=== PATIENT | male | born 1995 | race Caucasian/White ===

== ENCOUNTER → 2017-06-17 | Outpatient (CLI) | payer BC ==
--- NOTE | 2017-06-17 19:02 | REP ---
Clinical: Shortness of breath. Technique: PA and lateral. Comparison: 04/24/2008. Findings: Rounded opacity in the right upper lung zone may reflect acute pneumonia and less likely mass lesion. Follow-up to resolution and/or chest CT with contrast is recommended for further investigation. No pleural effusion. Mediastinum and cardiac silhouette normal. Skeletal structures intact. Impression: Likely rounded atelectasis/pneumonia in the right upper lobe. Follow-up to resolution recommended. Signed by Kirk Blackmon MD 06/17/2017 06:53 P
== END ==
LOC: M WUC 18:37
PROVIDERS: ATTEND Physician Assistant
DX: R06.02 Shortness of breath (principal)

== ENCOUNTER → 2017-07-08 | Outpatient (CLI) | payer BC | LOC: M WUC 15:43 | DX: J18.9 Pneumonia, unspecified organism (principal) | CPT/HCPCS: 71046 ==

== ENCOUNTER → 2017-08-17 | Outpatient (CLI) | payer BC | LOC: M WUC 15:43 | DX: J18.9 Pneumonia, unspecified organism (principal) ==

== ENCOUNTER → 2017-09-22 | Outpatient (CLI) | payer BC | LOC: M WUC 15:46 | DX: J18.9 Pneumonia, unspecified organism (principal) | CPT/HCPCS: 71046 ==

== ENCOUNTER → 2018-06-07 | Outpatient (CLI) | payer BC ==
[2018-06-07 19:23] LABS: BASO % 0.5 % (0.0-1.0); EOS # 0.1 10^3/uL (0.0-0.50); EOS % 1.3 % (0.0-3.0); HEMATOCRIT 46.7 % (42.0-52.0); HEMOGLOBIN 16.1 g/dl (13.5-17.5); IMMATURE GRANULOCYTE % 0.1 % (0-3.0); LYMPH # 2.2 10^3/uL (1.5-6.5); LYMPH % 29.4 % (24.0-44.0); MEAN CORPUSCULAR HEMOGLOBIN 30.7 pg (27.0-33.0); MEAN CORPUSCULAR HGB CONC 34.5 g/dl (32.0-36.5); MONO # 0.5 10^3/uL (0.0-0.8); MONO % 6.8 % (0.0-5.0); NEUTROPHILS # 4.7 10^3/uL (1.8-7.7); NEUTROPHILS % 61.9 % (36.0-66.0); PLATELET COUNT, AUTOMATED 265 10^3/uL (150-450); RED BLOOD COUNT 5.25 10^6/uL (4.30-6.10); RED CELL DISTRIBUTION WIDTH 12.9 % (11.5-14.5); WHITE BLOOD COUNT 7.5 10^3/uL (4.0-10.0)
[2018-06-07 19:39] LABS: ALBUMIN 4.5 GM/DL (3.2-5.2); ALBUMIN/GLOBULIN RATIO 1.45 (1.00-1.93); ALKALINE PHOSPHATASE 73 U/L (45-117); ALT/SGPT 37 U/L (12-78); ANION GAP 8 MEQ/L (8-16); AST/SGOT 21 U/L (7-37); BILIRUBIN,TOTAL 0.7 MG/DL (0.2-1.0); BLOOD UREA NITROGEN 14 MG/DL (7-18); CALCIUM LEVEL 9.2 MG/DL (8.5-10.1); CARBON DIOXIDE LEVEL 28 MEQ/L (21-32); CHLORIDE LEVEL 103 MEQ/L (98-107); CHOLESTEROL LEVEL 144 MG/DL (<200); CREATININE FOR GFR 0.86 MG/DL (0.70-1.30); FREE T4 1.09 NG/DL (0.76-1.46); GLOMERULAR FILTRATION RATE > 60.0 (>60); GLUCOSE, FASTING 86 MG/DL (70-100); HDL CHOLESTEROL 45 MG/DL (>40); LDL CHOLESTEROL 88 MG/DL (<100); NON-HDL-C 99 MG/DL; POTASSIUM SERUM 4.4 MEQ/L (3.5-5.1); SODIUM LEVEL 139 MEQ/L (136-145); TOTAL PROTEIN 7.6 GM/DL (6.4-8.2); TRIGLYCERIDES LEVEL 56 MG/DL (<150)
[2018-06-07 19:59] LABS: ESTIMATED AVERAGE GLUCOSE 105 MG/DL (60-110); HEMOGLOBIN A1c 5.3 %
== END ==
LOC: M LAB 18:12
DX: J30.1 Allergic rhinitis due to pollen (principal); I10 Essential (primary) hypertension; E66.09 Other obesity due to excess calories; Z68.35 Body mass index [BMI] 35.0-35.9, adult; Z13.220 Encounter for screening for lipoid disorders
CPT/HCPCS: 84443

== ENCOUNTER → 2018-06-09 | Outpatient (CLI) | payer BC | LOC: M SLEEP HO 15:09 | DX: G47.33 Obstructive sleep apnea (adult) (pediatric) (principal) | CPT/HCPCS: G0399 ==

== ENCOUNTER → 2019-02-12 | Outpatient (CLI) | payer BC ==
[2019-02-12 10:59] LABS: BASO % 0.2 % (0.0-1.0); EOS # 0.2 10^3/uL (0.0-0.50); EOS % 1.8 % (0.0-3.0); HEMATOCRIT 48.6 % (42.0-52.0); HEMOGLOBIN 16.9 g/dl (13.5-17.5); LYMPH # 1.3 10^3/uL (1.5-6.5); LYMPH % 13.4 % (24.0-44.0); MEAN CORPUSCULAR HEMOGLOBIN 31.4 pg (27.0-33.0); MEAN CORPUSCULAR HGB CONC 34.8 g/dl (32.0-36.5); MEAN CORPUSCULAR VOLUME 90.2 fl (80.0-96.0); MONO # 0.4 10^3/uL (0.0-0.8); NEUTROPHILS # 7.7 10^3/uL (1.8-7.7); NEUTROPHILS % 80.1 % (36.0-66.0); PLATELET COUNT, AUTOMATED 269 10^3/uL (150-450); RED BLOOD COUNT 5.39 10^6/uL (4.30-6.10); WHITE BLOOD COUNT 9.6 10^3/uL (4.0-10.0)
[2019-02-12 11:31] LABS: ALBUMIN 4.3 GM/DL (3.2-5.2); ALT/SGPT 32 U/L (12-78); BILIRUBIN,TOTAL 0.8 MG/DL (0.2-1.0); BLOOD UREA NITROGEN 10 MG/DL (7-18); CALCIUM LEVEL 9.9 MG/DL (8.5-10.1); CARBON DIOXIDE LEVEL 26 MEQ/L (21-32); CHLORIDE LEVEL 105 MEQ/L (98-107); GLOMERULAR FILTRATION RATE > 60.0 (>60); GLUCOSE, FASTING 101 MG/DL (70-100); LIPASE 134 U/L (73-393); POTASSIUM SERUM 3.7 MEQ/L (3.5-5.1); SODIUM LEVEL 141 MEQ/L (136-145); TOTAL PROTEIN 7.6 GM/DL (6.4-8.2)
== END ==
LOC: M LAB 09:55
PROVIDERS: ATTEND Physician Assistant
DX: R10.30 Lower abdominal pain, unspecified (principal)

== ENCOUNTER → 2019-02-12 | Outpatient (REF) | payer BC | LOC: M LAB REF 12:48 | PROVIDERS: ATTEND Physician Assistant | DX: R19.7 Diarrhea, unspecified (principal) ==

== ENCOUNTER → 2019-03-08 | Outpatient (REF) | payer BC ==
[~2019-03-08] MED LIST: ALBU83IN NEB; AMLO5TAB6; DOXY-350 PO; HYDR-3363 PO; LISI-1046; PROAAER10 INH; TESS100C PO
== END ==
LOC: M LAB REF 11:17
PROVIDERS: ATTEND Physician Assistant
DX: J02.9 Acute pharyngitis, unspecified (principal)

== ENCOUNTER 2019-03-10 09:55 | Emergency (ER) | payer BC ==
[~2019-03-10] VITALS: Ht 188 cm; Wt 116.4 kg
[2019-03-10 09:55] VITALS: BP 154/79
[2019-03-10] MEDS ORDERED: LISI-1046 (09:59)
[2019-03-10] MEDS ORDERED: HYDR-3363 PO (09:59)
[2019-03-10] MEDS ORDERED: AMLO5TAB6 (09:59)
[2019-03-10] MEDS ORDERED: ALBUTEROL SULFATE 2.5 MG/0.5 ML INH NEB SOLN NEB ONE (10:30)
[2019-03-10 10:37] LABS: BASO % 0.3 % (0.0-1.0); EOS # 0.1 10^3/uL (0.0-0.5); EOS % 0.6 % (0.0-3.0); HEMATOCRIT 45.4 % (42.0-52.0); LYMPH # 1.2 10^3/uL (1.5-5.0); LYMPH % 11.2 % (24.0-44.0); MEAN CORPUSCULAR HEMOGLOBIN 30.9 pg (27.0-33.0); MEAN CORPUSCULAR HGB CONC 35.2 g/dl (32.0-36.5); MEAN CORPUSCULAR VOLUME 87.6 fl (80.0-96.0); MONO # 0.8 10^3/uL (0.0-0.8); MONO % 7.1 % (0.0-5.0); NEUTROPHILS # 8.7 10^3/uL (1.5-8.5); NEUTROPHILS % 80.5 % (36.0-66.0); PLATELET COUNT, AUTOMATED 208 10^3/uL (150-450); RED BLOOD COUNT 5.18 10^6/uL (4.30-6.10); WHITE BLOOD COUNT 10.8 10^3/uL (4.0-10.0)
[2019-03-10 10:50] LABS: BLOOD UREA NITROGEN 11 MG/DL (7-18); CALCIUM LEVEL 8.7 MG/DL (8.5-10.1); CARBON DIOXIDE LEVEL 24 MEQ/L (21-32); CHLORIDE LEVEL 103 MEQ/L (98-107); CREATININE FOR GFR 0.99 MG/DL (0.70-1.30); GLOMERULAR FILTRATION RATE > 60.0 (>60); GLUCOSE, FASTING 109 MG/DL (70-100); POTASSIUM SERUM 3.7 MEQ/L (3.5-5.1); SODIUM LEVEL 136 MEQ/L (136-145)
[2019-03-10 10:55] LABS: INFLUENZA A AMPLIFICATION NEGATIVE (NEGATIVE); INFLUENZA B AMPLIFICATION NEGATIVE (NEGATIVE)
--- NOTE | 2019-03-10 11:00 | REP ---
REASON: Cough and pyrexia. COMPARISON: Multiple. There is a new patchy opacity in the right upper lobe. The pleural angles are sharp and the heart is not enlarged. The osseous structures are normal. IMPRESSION: Right upper lobe pneumonia. Electronically Signed by Stiven Cabrera DO 03/10/2019 11:25 A
[2019-03-10] MEDS ORDERED: DOXY-350 PO (11:03)
[2019-03-10] MEDS ORDERED: ALBU83IN NEB (11:05)
[2019-03-10] MEDS ORDERED: PROAAER10 INH (11:05)
[2019-03-10] MEDS ORDERED: TESS100C PO (11:05)
== END 2019-03-10 11:22 | disposition home or self-care (01) ==
LOC: M ED 09:55
DX: J18.1 Lobar pneumonia, unspecified organism (principal); F41.9 Anxiety disorder, unspecified; I10 Essential (primary) hypertension; F17.290 Nicotine dependence, other tobacco product, uncomplicated; Z79.899 Other long term (current) drug therapy

== ENCOUNTER → 2019-11-01 | Outpatient (REF) | payer BC ==
[~2019-11-01] MED LIST changes: -LISI-1046; +LISI2.5T2
[2019-11-01 17:46] LABS: BASO # 0.1 10^3/uL (0.0-0.2); BASO % 0.7 % (0.0-1.0); EOS # 0.2 10^3/uL (0.0-0.5); EOS % 1.7 % (0.0-3.0); HEMATOCRIT 45.5 % (42.0-52.0); LYMPH # 2.3 10^3/uL (1.5-5.0); MEAN CORPUSCULAR HEMOGLOBIN 30.8 pg (27.0-33.0); MEAN CORPUSCULAR HGB CONC 35.2 g/dl (32.0-36.5); MEAN CORPUSCULAR VOLUME 87.7 fl (80.0-96.0); MONO # 0.6 10^3/uL (0.0-0.8); MONO % 5.9 % (0.0-5.0); NEUTROPHILS % 68.4 % (36.0-66.0); PLATELET COUNT, AUTOMATED 322 10^3/uL (150-450); RED BLOOD COUNT 5.19 10^6/uL (4.30-6.10); WHITE BLOOD COUNT 10.2 10^3/uL (4.0-10.0)
[2019-11-01 18:05] LABS: ALBUMIN 4.1 GM/DL (3.2-5.2); ALT/SGPT 44 U/L (12-78); BILIRUBIN,TOTAL 0.5 MG/DL (0.2-1.0); BLOOD UREA NITROGEN 25 MG/DL (7-18); CALCIUM LEVEL 9.4 MG/DL (8.5-10.1); CARBON DIOXIDE LEVEL 26 MEQ/L (21-32); CHLORIDE LEVEL 105 MEQ/L (98-107); CHOLESTEROL LEVEL 187 MG/DL (<200); CHOLESTEROL RISK RATIO 4.675 (<5); CREATININE FOR GFR 0.97 MG/DL (0.70-1.30); GLOMERULAR FILTRATION RATE > 60.0 (>60); GLUCOSE, FASTING 63 MG/DL (70-100); HDL CHOLESTEROL 40 MG/DL (>40); LDL CHOLESTEROL 114 MG/DL (<100); NON-HDL-C 147 MG/DL; POTASSIUM SERUM 4.5 MEQ/L (3.5-5.1); SODIUM LEVEL 137 MEQ/L (136-145); TOTAL PROTEIN 7.6 GM/DL (6.4-8.2); TRIGLYCERIDES LEVEL 164 MG/DL (<150)
[2019-11-01 19:34] LABS: HEMOGLOBIN A1c 5.6 %
== END ==
LOC: M SFHCPLAZ 15:30
PROVIDERS: ATTEND Physician Assistant Medical
DX: I10 Essential (primary) hypertension (principal); Z13.220 Encounter for screening for lipoid disorders; E66.09 Other obesity due to excess calories

== ENCOUNTER 2020-02-14 21:24 | Emergency (ER) | payer BC ==
[~2020-02-14] VITALS: Ht 190.5 cm; Wt 150.8 kg
[~2020-02-14 21:24] MED LIST changes: +AMLO1TAB24; -AMLO5TAB6
[2020-02-14 21:25] VITALS: BP 135/60
[2020-02-14] MEDS ORDERED: SERT25TA21 (21:47)
--- NOTE | 2020-02-14 22:16 | REPVR ---
PROCEDURE INFORMATION: Exam: XR Chest, 2 Views Exam date and time: 02/14/2020 10:07 PM Age: 25 years old Clinical indication: Shortness of breath; Additional info: SOB TECHNIQUE: Imaging protocol: XR of the chest Views: 2 views. COMPARISON: CR Chest, 2 view PA, Lat 03/10/2019 10:18 AM FINDINGS: Lungs: Unremarkable. No consolidation. Pleural space: Unremarkable. No pleural effusion. No pneumothorax. Heart/Mediastinum: Unremarkable. No cardiomegaly. Bones/joints: Unremarkable. IMPRESSION: No acute findings. Electronically signed by: Girish Appiah On 02/14/2020 22:17:01 PM
[2020-02-15] MEDS ORDERED: PRED20TA PO (02:38)
[2020-02-15] MEDS ORDERED: predniSONE 20 MG TAB PO ONE (02:45)
== END 2020-02-15 03:26 | disposition home or self-care (01) ==
LOC: M ED 21:24
DX: R06.02 Shortness of breath (principal); R05 Cough; I10 Essential (primary) hypertension; Z79.899 Other long term (current) drug therapy; F17.210 Nicotine dependence, cigarettes, uncomplicated

== ENCOUNTER 2020-03-24 09:04 | Emergency (ER) | payer BC ==
[~2020-03-24] VITALS: Ht 190.5 cm; Wt 157.3 kg
[~2020-03-24 09:04] MED LIST changes: +PRED20TA PO; +SERT25TA21
[2020-03-24] MEDS ORDERED: DOXY100T27 (09:12)
[2020-03-24] MEDS ORDERED: PRED10TA2 (09:12)
[2020-03-24] MEDS ORDERED: ALBU8.5H (09:12)
[2020-03-24] MEDS ORDERED: MONT10TA4 (09:12)
[2020-03-24] MEDS ORDERED: BENZONATATE 100 MG CAP PO ONE (10:45)
[2020-03-24] MEDS ORDERED: methylPREDNISolone 125MG 2ML VIAL IV ONE ×2 (10:45→11:00)
[2020-03-24 11:38] LABS: BASO # 0.1 10^3/uL (0.0-0.2); BASO % 0.3 % (0.0-1.0); HEMATOCRIT 44.8 % (42.0-52.0); HEMOGLOBIN 14.5 g/dl (13.5-17.5); LYMPH # 0.8 10^3/uL (1.5-5.0); LYMPH % 3.4 % (24.0-44.0); MEAN CORPUSCULAR HEMOGLOBIN 28.9 pg (27.0-33.0); MEAN CORPUSCULAR HGB CONC 32.4 g/dl (32.0-36.5); MEAN CORPUSCULAR VOLUME 89.4 fl (80.0-96.0); MONO # 0.9 10^3/uL (0.0-0.8); MONO % 3.7 % (0.0-5.0); NEUTROPHILS # 22.7 10^3/uL (1.5-8.5); PLATELET COUNT, AUTOMATED 356 10^3/uL (150-450); RED BLOOD COUNT 5.01 10^6/uL (4.30-6.10); WHITE BLOOD COUNT 24.7 10^3/uL (4.0-10.0)
[2020-03-24] MEDS ORDERED: ISOVUE-370 76% 100ML VIAL As Ordered ONE (11:49)
[2020-03-24 12:20] LABS: ALBUMIN 3.8 GM/DL (3.2-5.2); BILIRUBIN,DIRECT 0.2 MG/DL (0.0-0.2); BILIRUBIN,TOTAL 0.8 MG/DL (0.2-1.0); THYROID STIMULATING HORMONE 1.45 uIU/ML (0.358-3.740); THYROXINE (T4) 9.4 UG/DL (4.5-12.0); TOTAL PROTEIN 7.3 GM/DL (6.4-8.2)
--- NOTE | 2020-03-24 13:50 | REPVR ---
PROCEDURE INFORMATION: Exam: XR Chest, 2 Views Exam date and time: 03/24/2020 1:26 PM Age: 25 years old Clinical indication: Cough; Additional info: Productive cough TECHNIQUE: Imaging protocol: XR of the chest Views: 2 views. COMPARISON: CR Chest, 2 view PA, Lat 02/14/2020 10:02 PM FINDINGS: Lungs: Mild interstitial prominence without acute infiltrate. Pleural space: No pleural effusion. Heart/Mediastinum: No cardiomegaly. Bones/joints: Unremarkable. IMPRESSION: Mild interstitial prominence without acute infiltrate. Electronically signed by: Cody Omer On 03/24/2020 13:50:36 PM
--- NOTE | 2020-03-24 13:56 | REPVR ---
PROCEDURE INFORMATION: Exam: CT Angiography Chest With Contrast Exam date and time: 03/24/2020 1:37 PM Age: 25 years old Clinical indication: Other: Hemoptysis, R/O pe TECHNIQUE: Imaging protocol: Computed tomographic angiography of the chest with intravenous contrast. 3D rendering (Not supervised by radiologist): MIP and/or 3D reconstructed images were created by the technologist. Radiation optimization: All CT scans at this facility use at least one of these dose optimization techniques: automated exposure control; mA and/or kV adjustment per patient size (includes targeted exams where dose is matched to clinical indication); or iterative reconstruction. Contrast material: ISOVUE 370; Contrast volume: 100 ml; Contrast route: INTRAVENOUS (IV); COMPARISON: CR Chest, 2 view PA, Lat 03/24/2020 1:19 PM FINDINGS: Pulmonary arteries: No pulmonary embolus in the opacified pulmonary arteries. Aorta: Normal caliber of the thoracic aorta. Lungs: Bilateral interstitial/airspace disease, in a pattern of pneumonitis. Poorly defined bilateral nodular densities, including 6 mm nodule in the posterior segment of the right upper lobe (series 401: Image 81) and 10 mm poorly defined nodule in the left upper lobe (series 401: Image 65). For patients at low risk (minimal or absent history of smoking and of other known risk factors), recommend CT Chest at 3-6 months, then consider CT Chest at 18-24 months. For patients at high risk (history of smoking or of other known risk factors), recommend CT Chest at 3-6 months, then CT Chest at 18-24 months. (Reference: Frances). Pleural space: No pleural effusion. Heart: Left ventricular hypertrophy. Mediastinal space: Small hiatal hernia. Lymph nodes: Subcentimeter lymph nodes. Upper abdomen: Enlarged spleen measuring 12.9 cm in length. Colonic diverticula. Bones/joints: Schmorl's nodes and vertebral endplate irregularity. IMPRESSION: 1. No pulmonary embolus in the opacified pulmonary arteries. 2. Bilateral interstitial/airspace disease, in a pattern of pneumonitis. 3. Poorly defined bilateral nodular densities, including 6 mm nodule in the posterior segment of the right upper lobe (series 401: Image 81) and 10 mm poorly defined nodule in the left upper lobe (series 401: Image 65). 4. Additional findings as described above. Electronically signed by: Cody Omer On 03/24/2020 13:56:02 PM
[2020-03-24] MEDS ORDERED: NS 1,000 ML IV ONE (14:30)
[2020-03-24] MEDS ORDERED: TESS100C PO (15:36)
[2020-03-24 16:41] VITALS: BP 146/78
--- NOTE | 2020-03-25 09:08 | ECGEPIP ---
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
--- NOTE | 2020-03-26 18:42 | ED PDOC ---
Post-Departure Follow-Up dr bal and chloe mccain faxed formal report of cta chest for fu Kamila Huang MD Mar 26, 2020 18:42
== END 2020-03-24 16:46 | disposition home or self-care (01) ==
LOC: M ED 09:04
DX: J06.9 Acute upper respiratory infection, unspecified (principal); B34.9 Viral infection, unspecified; R04.2 Hemoptysis; R91.8 Other nonspecific abnormal finding of lung field; R00.0 Tachycardia, unspecified; I10 Essential (primary) hypertension; Z87.891 Personal history of nicotine dependence; Z79.51 Long term (current) use of inhaled steroids; Z79.899 Other long term (current) drug therapy
CPT/HCPCS: 71046; 71275; 80047; 80076; 83880; 84436; 84443; 84484; 85025; 87040; 87070; 87205; 87486; 87581; 87633; 87798; 93005; 96361; 96374; 96376; 99284; J2930; Q9967

== ENCOUNTER → 2020-03-26 | Outpatient (CLI) | payer BC ==
[~2020-03-26] MED LIST changes: +ALBU8.5H; +DOXY100T27; +MONT10TA4; +PRED10TA2
[2020-03-26 13:53] LABS: BASO % 0.2 % (0.0-1.0); EOS % 0.1 % (0.0-3.0); HEMATOCRIT 46.6 % (42.0-52.0); HEMOGLOBIN 15.1 g/dl (13.5-17.5); LYMPH % 5.5 % (24.0-44.0); MEAN CORPUSCULAR HEMOGLOBIN 29.3 pg (27.0-33.0); MEAN CORPUSCULAR HGB CONC 32.4 g/dl (32.0-36.5); MEAN CORPUSCULAR VOLUME 90.3 fl (80.0-96.0); MONO % 5.3 % (0.0-5.0); NEUTROPHILS # 16.4 10^3/uL (1.5-8.5); NEUTROPHILS % 88.4 % (36.0-66.0); PLATELET COUNT, AUTOMATED 373 10^3/uL (150-450); RED BLOOD COUNT 5.16 10^6/uL (4.30-6.10); WHITE BLOOD COUNT 18.5 10^3/uL (4.0-10.0)
--- NOTE | 2020-04-02 07:27 | REPPI ---
CHEST X-RAY: 2-VIEWS HISTORY: Pneumonia. COMPARISON: Chest x-ray 03/24/2020. CT study 03/24/2020. FINDINGS: Interstitial markings remain diffusely increased. There is mild diffuse peribronchial thickening. No focal consolidation is appreciated. Pleural angles are sharp. Heart is not enlarged. Pulmonary vasculature is not increased. No significant bony abnormality. IMPRESSION: Diffusely prominent interstitial markings and peribronchial thickening persists. No focal consolidation. MTDD
== END ==
LOC: M PLAIMG 11:04
PROVIDERS: ATTEND Physician Assistant Medical
DX: J69.0 Pneumonitis due to inhalation of food and vomit (principal)

== ENCOUNTER → 2020-06-04 | Outpatient (REF) | payer BC ==
[~2020-06-04] MED LIST changes: -MONT10TA4; +MONT5TAB2
== END ==
LOC: M SFHCPLAZ 13:17 → M SMT 13:17
PROVIDERS: ATTEND Physician Assistant Medical
DX: R05 Cough (principal)

== ENCOUNTER → 2020-06-23 | Outpatient (REF) | payer OTHER, BC ==
[2020-06-23 17:59] LABS: C REACTIVE PROTEIN QUANTITATIV 2.64 MG/DL (0.00-0.30); RHEUMATOID FACTOR QUANT < 10.0 IU/ML (<15.0)
== END ==
LOC: M LAB REF 16:45
PROVIDERS: ATTEND Nurse Practitioner Family
DX: G47.33 Obstructive sleep apnea (adult) (pediatric) (principal); R06.00 Dyspnea, unspecified; R05 Cough

== ENCOUNTER → 2020-06-25 | Outpatient (CLI) | payer BC, OTHER ==
[~2020-06-25] MED LIST changes: +ISOVUE-370 76% 100ML VIAL As Ordered ONE
--- NOTE | 2020-06-25 10:58 | REP ---
INDICATION: PULMONARY NODULES COMPARISON: 03/24/2020 TECHNIQUE: Axial contrast enhanced images from the thoracic inlet to the upper abdomen with coronal and sagittal reformations using 75 ml Isovue 370 intravenous contrast material. This CT examination was performed using the following dose reduction techniques: Automated exposure control, adjustment of mA and/or kv according to the patient's size, and use of iterative reconstruction technique. FINDINGS: Small scattered infiltrates primarily noted in the right upper lobe and bilateral lower lobes with small scattered noncalcified nodules. The findings are similar to prior examination but significantly improved. No effusion. No pneumothorax. No significant adenopathy. Tracheobronchial tree is patent. Further evaluation of the mediastinum demonstrates normal thoracic aorta, pulmonary vasculature, and heart/pericardium. Surrounding musculoskeletal structures are intact. Upper abdomen demonstrates normal bilateral adrenal glands. IMPRESSION: Small scattered infiltrates and noncalcified nodules up to 4 mm improved as compared to prior examination. Correlation and follow-up with pulmonology may be warranted. <Electronically signed by Kirk Blackmon > 06/25/20 [id number]
== END ==
LOC: M RAD 10:15
PROVIDERS: ATTEND Physician Assistant Medical
DX: R91.8 Other nonspecific abnormal finding of lung field (principal)
CPT/HCPCS: 71260; Q9967

== ENCOUNTER → 2020-06-30 | Outpatient (REF) | payer BC, OTHER ==
[~2020-06-30] MED LIST changes: -ISOVUE-370 76% 100ML VIAL As Ordered ONE
== END ==
LOC: M SFHCPLAZ 13:11
PROVIDERS: ATTEND Physician Assistant Medical
DX: R91.8 Other nonspecific abnormal finding of lung field (principal)

== ENCOUNTER → 2020-07-01 | Outpatient (REF) | payer OTHER, BC ==
[2020-07-01 13:40] LABS: BASO # 0.1 10^3/uL (0.0-0.2); BASO % 0.4 % (0.0-1.0); EOS # 0.3 10^3/uL (0.0-0.5); EOS % 2.3 % (0.0-3.0); HEMATOCRIT 46.8 % (42.0-52.0); HEMOGLOBIN 14.3 g/dl (13.5-17.5); LYMPH # 1.9 10^3/uL (1.5-5.0); LYMPH % 16.6 % (24.0-44.0); MEAN CORPUSCULAR HEMOGLOBIN 26.5 pg (27.0-33.0); MEAN CORPUSCULAR HGB CONC 30.6 g/dl (32.0-36.5); MEAN CORPUSCULAR VOLUME 86.8 fl (80.0-96.0); MONO # 0.7 10^3/uL (0.0-0.8); MONO % 6.1 % (0.0-5.0); NEUTROPHILS # 8.4 10^3/uL (1.5-8.5); NEUTROPHILS % 74.2 % (36.0-66.0); PLATELET COUNT, AUTOMATED 319 10^3/uL (150-450); RED BLOOD COUNT 5.39 10^6/uL (4.30-6.10); WHITE BLOOD COUNT 11.4 10^3/uL (4.0-10.0)
[2020-07-01 14:19] LABS: ALBUMIN 3.7 GM/DL (3.2-5.2); ALT/SGPT 27 U/L (12-78); BILIRUBIN,TOTAL 0.4 MG/DL (0.2-1.0); BLOOD UREA NITROGEN 12 MG/DL (7-18); CALCIUM LEVEL 9.4 MG/DL (8.5-10.1); CARBON DIOXIDE LEVEL 31 MEQ/L (21-32); CHLORIDE LEVEL 102 MEQ/L (98-107); CREATININE FOR GFR 0.78 MG/DL (0.70-1.30); GLOMERULAR FILTRATION RATE > 60.0 (>60); GLUCOSE, FASTING 85 MG/DL (70-100); POTASSIUM SERUM 4.2 MEQ/L (3.5-5.1); SODIUM LEVEL 138 MEQ/L (136-145); TOTAL PROTEIN 7.3 GM/DL (6.4-8.2)
== END ==
LOC: M SFHCPLAZ 09:11
PROVIDERS: ATTEND Physician Assistant Medical
DX: R91.8 Other nonspecific abnormal finding of lung field (principal)

== ENCOUNTER → 2020-09-26 | Outpatient (CLI) | payer BC ==
[~2020-09-26] MED LIST changes: +MONT10TA10; -MONT5TAB2
--- NOTE | 2020-09-26 09:54 | REP ---
INDICATION: DYSPNEA COMPARISON: 03/26/2020 TECHNIQUE: PA and lateral. FINDINGS: The mediastinum and cardiac silhouette are normal. The lung moser are clear and without acute consolidation, effusion, or pneumothorax. The skeletal structures are intact and normal. IMPRESSION: No acute cardiopulmonary process. <Electronically signed by Kirk Blackmon > 09/26/20 [id number]
== END ==
LOC: M RAD 09:40
PROVIDERS: ATTEND Nurse Practitioner Family
DX: R06.00 Dyspnea, unspecified (principal)

== ENCOUNTER → 2020-10-06 | Outpatient (REF) | payer BC ==
[~2020-10-06] MED LIST changes: +ADVA115A INH; -AMLO1TAB24; +AMLO1TAB24 PO; +LISI2.5T2 PO; +OMEP-218 PO; +SERT50TA29 PO; +TORS20TA2 PO
[2020-10-06 14:06] LABS: BASO # 0.1 10^3/uL (0.0-0.2); BASO % 0.7 % (0.0-1.0); EOS # 0.2 10^3/uL (0.0-0.5); EOS % 1.5 % (0.0-3.0); HEMATOCRIT 48.4 % (42.0-52.0); HEMOGLOBIN 13.3 g/dl (13.5-17.5); LYMPH # 1.7 10^3/uL (1.5-5.0); LYMPH % 17.5 % (24.0-44.0); MEAN CORPUSCULAR HEMOGLOBIN 23.6 pg (27.0-33.0); MEAN CORPUSCULAR HGB CONC 27.5 g/dl (32.0-36.5); MEAN CORPUSCULAR VOLUME 85.8 fl (80.0-96.0); MONO # 0.7 10^3/uL (0.0-0.8); MONO % 7.5 % (2.0-8.0); NEUTROPHILS # 7.2 10^3/uL (1.5-8.5); NEUTROPHILS % 72.1 % (36.0-66.0); PLATELET COUNT, AUTOMATED 302 10^3/uL (150-450); RED BLOOD COUNT 5.64 10^6/uL (4.30-6.10); WHITE BLOOD COUNT 9.9 10^3/uL (4.0-10.0)
[2020-10-06 14:23] LABS: HEMOGLOBIN A1c 5.9 %
[2020-10-06 14:46] LABS: ALBUMIN 3.4 GM/DL (3.2-5.2); ALT/SGPT 28 U/L (12-78); BILIRUBIN,TOTAL 0.4 MG/DL (0.2-1.0); BLOOD UREA NITROGEN 15 MG/DL (7-18); CALCIUM LEVEL 8.9 MG/DL (8.5-10.1); CARBON DIOXIDE LEVEL 35 MEQ/L (21-32); CHLORIDE LEVEL 104 MEQ/L (98-107); CHOLESTEROL LEVEL 129 MG/DL (<200); CHOLESTEROL RISK RATIO 3.225 (<5); CREATININE FOR GFR 0.74 MG/DL (0.70-1.30); FREE T4 1.17 NG/DL (0.76-1.46); GLOMERULAR FILTRATION RATE > 60.0 (>60); GLUCOSE, FASTING 89 MG/DL (70-100); HDL CHOLESTEROL 40 MG/DL (>40); LDL CHOLESTEROL 78 MG/DL (<100); NON-HDL-C 89 MG/DL; POTASSIUM SERUM 4.5 MEQ/L (3.5-5.1); SODIUM LEVEL 142 MEQ/L (136-145); TOTAL PROTEIN 6.8 GM/DL (6.4-8.2); TRIGLYCERIDES LEVEL 57 MG/DL (<150)
[2020-10-07 18:06] LABS: INSULIN LEVEL 33.2 uIU/mL (2.6-24.9); TESTOSTERONE FREE (DIRECT) 9.8 pg/mL (9.3-26.5)
== END ==
LOC: M SFHCPLAZ 08:39
PROVIDERS: ATTEND Nurse Practitioner Family
DX: R63.5 Abnormal weight gain (principal); R73.01 Impaired fasting glucose; E78.2 Mixed hyperlipidemia; R53.83 Other fatigue

== ENCOUNTER 2020-10-10 14:44 | Observation (INO) | payer BC, OTHER ==
[~2020-10-10] VITALS: Ht 190.5 cm; Wt 158.8 kg
[2020-10-10 01:00] VITALS: BP 127/73
[2020-10-10] MEDS: LISINOPRIL *2.5 MG* TAB PO SCH (01:00)
[2020-10-10] MEDS: amLODIPine 5 MG TAB PO SCH (01:00)
[2020-10-10] MEDS: OMEPRAZOLE 20 MG CAP PO SCH (01:00)
[~2020-10-10 14:44] MED LIST changes: -ADVA115A INH; -LISI2.5T2 PO; -OMEP-218 PO; -SERT50TA29 PO; -TORS20TA2 PO
[2020-10-10] MEDS ORDERED: OMEP-218 PO (15:05)
[2020-10-10] MEDS ORDERED: SERT50TA29 PO (15:05)
[2020-10-10] MEDS ORDERED: LISI2.5T2 PO (15:05)
[2020-10-10] MEDS ORDERED: HYDR-3363 PO (15:05)
[2020-10-10] MEDS ORDERED: ADVA115A INH (15:05)
[2020-10-10 18:12] LABS: BASO # 0.1 10^3/uL (0.0-0.2); BASO % 0.5 % (0.0-1.0); EOS # 0.2 10^3/uL (0.0-0.5); EOS % 1.5 % (0.0-3.0); HEMATOCRIT 48.4 % (42.0-52.0); HEMOGLOBIN 13.6 g/dl (13.5-17.5); LYMPH # 1.8 10^3/uL (1.5-5.0); LYMPH % 14.4 % (24.0-44.0); MEAN CORPUSCULAR HEMOGLOBIN 23.8 pg (27.0-33.0); MEAN CORPUSCULAR HGB CONC 28.1 g/dl (32.0-36.5); MEAN CORPUSCULAR VOLUME 84.8 fl (80.0-96.0); MONO # 0.9 10^3/uL (0.0-0.8); MONO % 7.5 % (2.0-8.0); NEUTROPHILS # 9.3 10^3/uL (1.5-8.5); NEUTROPHILS % 75.4 % (36.0-66.0); PLATELET COUNT, AUTOMATED 313 10^3/uL (150-450); RED BLOOD COUNT 5.71 10^6/uL (4.30-6.10); WHITE BLOOD COUNT 12.3 10^3/uL (4.0-10.0)
[2020-10-10 18:41] LABS: BLOOD UREA NITROGEN 14 MG/DL (7-18); CALCIUM LEVEL 9.7 MG/DL (8.5-10.1); CARBON DIOXIDE LEVEL 36 MEQ/L (21-32); CHLORIDE LEVEL 103 MEQ/L (98-107); CK-MB VALUE MASS 2.1 NG/ML (<3.6); CPK CREATINE PHOSPHOKINASE 82 U/L (39-308); CREATININE FOR GFR 0.83 MG/DL (0.70-1.30); GLOMERULAR FILTRATION RATE > 60.0 (>60); GLUCOSE, FASTING 76 MG/DL (70-100); MB/CK RELATIVE INDEX 2.56 (< OR =4); NT-PRO BNP 597 PG/ML (<125); POTASSIUM SERUM 4.2 MEQ/L (3.5-5.1); SODIUM LEVEL 141 MEQ/L (136-145); TROPONIN I 0.15 NG/ML (< 0.10)
--- NOTE | 2020-10-10 18:41 | REP ---
INDICATION: CHEST PAIN. COMPARISON: Comparison chest x-ray September 26, 2020. TECHNIQUE: Portable upright AP chest radiograph. FINDINGS: The lungs are well inflated and free of infiltrate. Pleural angles are sharp. Heart size is normal. Pulmonary vasculature is not increased. IMPRESSION: No active disease. <Electronically signed by Asif Barber > 10/10/20 [id number]
[2020-10-10] MEDS ORDERED: ISOVUE-370 76% 100ML VIAL As Ordered ONE (19:27)
--- NOTE | 2020-10-10 20:03 | ECGEPIP ---
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
[2020-10-10 20:08] LABS: ALBUMIN 3.5 GM/DL (3.2-5.2); ALT/SGPT 27 U/L (12-78); BILIRUBIN,DIRECT 0.1 MG/DL (0.0-0.2); BILIRUBIN,TOTAL 0.5 MG/DL (0.2-1.0); TOTAL PROTEIN 7.1 GM/DL (6.4-8.2)
[2020-10-10 20:21] LABS: INR 0.95; PROTHROMBIN TIME 12.9 SECONDS (12.5-14.3)
--- NOTE | 2020-10-10 20:47 | REPVR ---
PROCEDURE INFORMATION: Exam: CTA Chest With Contrast Exam date and time: 10/10/2020 8:11 PM Age: 25 years old Clinical indication: Other: Leg edema TECHNIQUE: Imaging protocol: Computed tomographic angiography of the chest with contrast. 3D rendering (Not supervised by radiologist): MIP and/or 3D reconstructed images were created by the technologist. Radiation optimization: All CT scans at this facility use at least one of these dose optimization techniques: automated exposure control; mA and/or kV adjustment per patient size (includes targeted exams where dose is matched to clinical indication); or iterative reconstruction. Contrast material: ISOVUE 370; Contrast volume: 75 ml; Contrast route: INTRAVENOUS (IV); COMPARISON: CT ANGIO CHEST 03/24/2020 1:23 PM FINDINGS: Pulmonary arteries: The main pulmonary artery measures 32 mm. No central pulmonary embolism is identified. Aorta: The ascending thoracic aorta measures 32 mm. Lungs: Minimal infiltrate in the anterior left upper lobe with small focal areas of consolidation and minimal infiltrates and atelectasis in the lower lobes and right middle lobe. Pleural spaces: Unremarkable. No pneumothorax. No pleural effusion. Heart: Trace pericardial effusion. Lymph nodes: Numerous mediastinal nodes which are upper normal overall but increased since the prior study. Bones/joints: Unremarkable. No acute fracture. Soft tissues: Unremarkable. IMPRESSION: 1. Upper normal mediastinal nodes which are increased since 06/25/2020. 2. Minimal infiltrate in the anterior left upper lobe which is new and minimal infiltrates in the lower lobes and right middle lobe with some associated atelectasis consistent with pneumonia. Overall, there is slight increased since 06/25/2020 although some areas of previous infiltrate appear improved. 3. Otherwise grossly negative CTA chest. No central pulmonary embolism is identified. Electronically signed by: Adán Linda On 10/10/2020 20:48:18 PM
--- NOTE | 2020-10-10 20:51 | REPVR ---
PROCEDURE INFORMATION: Exam: US Duplex Lower Extremity Veins, Bilateral Exam date and time: 10/10/2020 8:45 PM Age: 25 years old Clinical indication: Edema, localized; Lower extremity, bilateral TECHNIQUE: Imaging protocol: Real-time duplex ultrasound of the extremities with 2-D villalobos scale, color Doppler flow and spectral waveform analysis with image documentation. Complete exam focused on the bilateral lower extremity veins. COMPARISON: No relevant prior studies available. FINDINGS: Right deep veins: Unremarkable. The common femoral, femoral, proximal profunda femoral and popliteal veins are patent without thrombus. Normal Doppler waveforms. Normal compressibility and/or augmentation response. Right superficial veins: Saphenofemoral junction is patent without thrombus. Left deep veins: Unremarkable. The common femoral, femoral, proximal profunda femoral and popliteal veins are patent without thrombus. Normal Doppler waveforms. Normal compressibility and/or augmentation response. Left superficial veins: Saphenofemoral junction is patent without thrombus. Soft tissues: Unremarkable. IMPRESSION: Negative bilateral lower extremity venous duplex exam without evidence of deep venous thrombosis. Electronically signed by: Adán Linda On 10/10/2020 20:51:44 PM
[2020-10-10] MEDS: SERTRALINE HCL 50 MG TAB PO SCH (21:00)
[2020-10-10] MEDS ORDERED: PROAAER10 INH (21:50)
[2020-10-10 23:19] LABS: CK-MB VALUE MASS 1.5 NG/ML (<3.6); MB/CK RELATIVE INDEX 1.88 (< OR =4); TROPONIN I 0.14 NG/ML (< 0.10)
[2020-10-10] MEDS ORDERED: ACETAMINOPHEN TAB 650MG DOSE (2X325MG) PO PRN (23:55)
[2020-10-10] MEDS ORDERED: ALBUTEROL 90 MCG/ACT 8GM HFA INHALER INH PRN (23:55)
[2020-10-10] MEDS ORDERED: MOM 30ML SUSPENSION UDC PO PRN (23:55)
[2020-10-10] MEDS ORDERED: hydrOXYzine 25 MG TAB PO PRN (23:55)
[2020-10-10] MEDS ORDERED: MAALOX 30 ML SUSP *UDC PO PRN (23:55)
[2020-10-11] VITALS (13 sets, daily range): BP systolic 113–160; BP diastolic 56–101; O2SAT 79–99
[2020-10-11] MEDS: FUROSEMIDE 40MG/4ML VIAL (J1940) IV SCH ×4 (01:00→17:47)
--- NOTE | 2020-10-11 01:16 | HPEPDOC ---
[facility] Medical History & Physical Date of Admission Oct 11, 2020 Date of Service: Oct 10, 2020 Primary Care Physician: TOMAS SHARIF Attending Physician: ANNE VILLAGRAN MD History and Physical CHIEF COMPLAINT: [sob] HISTORY OF PRESENT ILLNESS: [This is a 25 y/o male with a pmh of htn, scott and obesity who presents to the ED because his foot began to swell about 2 weeks ago. Patient states that he feels like symptoms first began about 6-8 months ago with increasing fatigue and sob. Patient states that he feels as though his symptoms have steadily gotten worse. Patients sob is worse with exercise and dissipates if he sits and rests. Patient states that he has come to th ED today because his feet and legs have begun swelling and aching. Patient states that the swelling has steadily gotten worse and has made it even harder for him to walk and move around. Patient also admits to increasing cough over this time frame. Patient states that he will occasional coughing fits that make it difficult for him to breath. Patient states that he occasionally has sputum that is dark brown or red tinged. Patient denies fevers, chills, chest pain, dizziness, syncope, nausea, vomiting, diarrhea, abd pain, recent travel. Patient has gained 100 pounds in the past year. Of note, patient found to have a pneumonia on workup in the ED. Patient states that he has had recurrent pneumonias in the same spot in his right lung for "a long time." Patient states that he was to receive a ct chest later in the month and follow up with his eye physician.] PAST MEDICAL HISTORY: 1. [See HPI PAST SURGICAL HISTORY: 1. [reviewed - none SOCIAL HISTORY: Tobacco use:[never] ETOH: [denies] Illicit drug use: [denies] FAMILY HISTORY: Father: [Leukemia] Mother: [HTN] ALLERGIES: Please see below. REVIEW OF SYSTEMS: CONSTITUTIONAL: [See HPI]. HEENT: [See HPI]. CARDIOVASCULAR: [See HPI]. RESPIRATORY: [See HPI]. GASTROINTESTINAL: [See HPI]. GENITOURINARY: [Denies dysuria]. SKIN: [Denies rash]. MUSCULOSKELETAL: [Denies acute joint, back pain.]. NEUROLOGICAL: [Denies paresthesias]. ENDOCRINE: [Denies hx of dm]. HEMATOLOGIC/LYMPHATIC: [Denies easy bruising]. HOME MEDICATIONS: Please see below. PHYSICAL EXAMINATION: VITAL SIGNS: Please see below. GENERAL APPEARANCE: [This is an obese 25 year old male. He appears older than his stated age.]. HEENT: [No mass or lesion. EOMI. No scleral icterus or conjunctival erythema. Nares patent. Oral mucosa moist without erythema.]. CARDIOVASCULAR: [Tachy rate, regular rhythm. No murmurs, rubs or gallops]. LUNGS: [Decreased breath sounds at the bases. No wheezing, rales, rhonchi.]. ABDOMEN: [Soft, non-tender]. MUSCULOSKELETAL: [No joint deformity]. EXTREMITIES: [Pitting edema to b/l lower extremities. No overlying skin changes. Pulses intact. No clubbing, cyanosis]. NEUROLOGICAL: [Sensation intact. Speech clear. A+Ox3. No focal deficits.]. PSYCHIATRIC: [Depressed mood. Affect appears appropriate]. LABORATORY DATA: See below. IMAGING: [Chest X-ray: FINDINGS:The lungs are well inflated and free of infiltrate. Pleural angles are sharp. Heart size is normal. Pulmonary vasculature is not increased. IMPRESSION: No active disease. CT Angio: Pulmonary arteries: The main pulmonary artery measures 32 mm. No central pulmonary embolism is identified. Aorta: The ascending thoracic aorta measures 32 mm. Lungs: Minimal infiltrate in the anterior left upper lobe with small focal areas of consolidation and minimal infiltrates and atelectasis in the lower lobes and right middle lobe. Pleural spaces: Unremarkable. No pneumothorax. No pleural effusion. Heart: Trace pericardial effusion. Lymph nodes: Numerous mediastinal nodes which are upper normal overall but increased since the prior study. Bones/joints: Unremarkable. No acute fracture. Soft tissues: Unremarkable. IMPRESSION: 1. Upper normal mediastinal nodes which are increased since 06/25/2020. 2. Minimal infiltrate in the anterior left upper lobe which is new and minimal infiltrates in the lower lobes and right middle lobe with some associated atelectasis consistent with pneumonia. Overall, there is slight increased since 06/25/2020 although some areas of previous infiltrate appear improved. 3. Otherwise grossly negative CTA chest. No central pulmonary embolism is identified. Vascular US: FINDINGS: Right deep veins: Unremarkable. The common femoral, femoral, proximal profunda femoral and popliteal veins are patent without thrombus. Normal Doppler waveforms. Normal compressibility and/or augmentation response. Right superficial veins: Saphenofemoral junction is patent without thrombus. Left deep veins: Unremarkable. The common femoral, femoral, proximal profunda femoral and popliteal veins are patent without thrombus. Normal Doppler waveforms. Normal compressibility and/or augmentation response. Left superficial veins: Saphenofemoral junction is patent without thrombus. Soft tissues: Unremarkable. IMPRESSION: Negative bilateral lower extremity venous duplex exam without evidence of deep venous thrombosis. ] MICROBIOLOGY: Please see below. ASSESSMENT: [This is a 25 year old male who presents to the ED with increasing sob, fatigue and new edema to his b/l LE. Patient paints heart failure picture clinically and also has elevated BNP and troponin. Patient seems to have some kind of undiagnosed chronic pulmonary condition as he has repeated supposed lung infections in the same area. I am concerned that he has developed right heart strain due to pulmonary process. Other possibility is patient is chronically hypoxic due to his obstructive sleep apnea which would also explain his daily fatigue and overtime cause heart failure.]. . PLAN: 1. [SOB/Edema likely 2/2 CHF - Patient paints heart failure picture clinically. Tachycardia, tachypneia, hypoxia and fluid overloaded on exam. BNP and troponin elevated. - Will diurese with lasix 40mg iv q6h - ECHO ordered - Will trend troponin, bnp - Will admit to med surg under obs with tele 2. Pneumonia ? - Patient seems to have had recurrent radiographic pneumonias at the same anatomical location. Patient was to follow up with pulmonology after receiving a ct scan later this month. I will be holding off an antibiotics for now as I am not convinced this is a pneumonia. - Day team can consider starting abx, repeating ct, consulting pulm 3. SIRS - Potentially inflammatory vs reactive - Tachycardia, tachypnea, elevated white count probably elevated due to acute heart failure/hypoxia - Will monitor 4. SCOTT - CPAP inpatient. Patient states this dose is around 4 cm. I am worried this is not enough - Will monitor pulse ox overnight 5. HTN - continue lisinopril, amlodipine 6. Depression - continue sertraline, hydroxyzine 7. GERD - omeprazole 8. Class 3 obesity complicates care DVT prophylaxis - Teds and scds]. Vital Signs Vital Signs Date Time Temp Pulse Resp B/P (MAP) Pulse Ox O2 Delivery O2 Flow Rate FiO2 10/10/20 20:00 112 20 157/68 (97) 97 Room Air 10/10/20 14:45 98.8 Laboratory Data Labs 24H Laboratory Tests 2 10/10/20 17:59: Prothrombin Time 12.9, Prothromb Time International Ratio 0.95 10/10/20 18:00: Immature Granulocyte % (Auto) 0.7, Neutrophils (%) (Auto) 75.4H, Lymphocytes (%) (Auto) 14.4L, Monocytes (%) (Auto) 7.5, Eosinophils (%) (Auto) 1.5, Basophils (%) (Auto) 0.5, Neutrophils # (Auto) 9.3H, Lymphocytes # (Auto) 1.8, Monocytes # (Auto) 0.9H, Eosinophils # (Auto) 0.2, Basophils # (Auto) 0.1, Nucleated Red Blood Cells % (auto) 0.0, Anion Gap 2L, Glomerular Filtration Rate > 60.0, Calcium Level 9.7, Total Bilirubin 0.5, Direct Bilirubin 0.1, Aspartate Amino Transf (AST/SGOT) 10, Alanine Aminotransferase (ALT/SGPT) 27, Alkaline Phosphatase 93, Total Creatine Kinase 82, Creatine Kinase MB 2.1, Creatine Kinase MB Relative Index 2.56, Troponin I 0.15H, WO-[id number]-Type Natriuretic Peptide 597H, Total Protein 7.1, Albumin 3.5, Albumin/Globulin Ratio 1.0 10/10/20 22:36: Total Creatine Kinase 80, Creatine Kinase MB 1.5, Creatine Kinase MB Relative Index 1.88, Troponin I 0.14H CBC/BMP Laboratory Tests 10/10/20 18:00 Microbiology Microbiology 10/11/20 Respiratory Virus Panel (PCR) ([facility]), Received Pending 10/10/20 Blood Culture, Received Pending Home Medications Scheduled Amlodipine Besylate (Amlodipine Besylate) 5 Mg Tablet, 5 MG PO QHS Fluticasone Propion/Salmeterol (Advair Hfa 115-21 Mcg Inhaler) 12 Gm Hfa.aer.ad, 2 PUFFS INH BID Lisinopril (Lisinopril) 2.5 Mg Tablet, 2.5 MG PO QHS Omeprazole (Omeprazole) 20 Mg Capsule.dr, 20 MG PO BID Sertraline HCl (Sertraline HCl) 50 Mg Tablet, 50 MG PO QHS Torsemide (Torsemide) 20 Mg Tablet, 40 MG PO DAILY Scheduled PRN Albuterol Sulf (Albuterol Sulfate) 2.5 Mg/3 Ml Vial.neb, 1 VIAL NEB Q4HP PRN for wheezing Albuterol Sulfate (Proair Hfa) 8.5 Gm Hfa.aer.ad, 2 PUFF INH Q4-6HP PRN for SHORTNESS OF BREATH Hydroxyzine HCl (Hydroxyzine HCl) 25 Mg Tablet, 25 MG PO Q8HP PRN for ANXIETY Allergies Coded Allergies: No Known Allergies (Unverified , 03/10/19) A-FIB/CHADSVASC A-FIB History Current/History of A-Fib/PAF?: No Attending Note Attending Note time of service 1125pm Mr. Bower is a 25 yr old w a hx of SCOTT & non-compliance w PAP, HTN and obesity who presented w c/o dyspnea, BLE edema and fatigue; he will be admitted for suspected CHF, trop is likely elevated 2/2 tachycardia. rest per OLYA Mcgee's H&P ZULEYKA MCGEE Oct 11, 2020 01:16 ANNE VILLAGRAN MD Oct 11, 2020 05:38
[2020-10-11 01:23] LABS: VENOUS BASE EXCESS 5.8 (-2.0-2.0); VENOUS HCO3 31.5 MEQ/L (23.0-27.0); VENOUS O2 SATURATION 97.9 % (60.0-80.0); VENOUS PARTIAL PRESSURE CO2 50.1 mmHg (38.0-50.0); VENOUS PARTIAL PRESSURE O2 98.8 mmHg (30.0-50.0); VENOUS PH 7.416 UNITS (7.330-7.430); VENOUS STANDARD HCO3 29.7 MEQ/L
[2020-10-11 06:40] LABS: HEMATOCRIT 47.6 % (42.0-52.0); HEMOGLOBIN 13.2 g/dl (13.5-17.5); MEAN CORPUSCULAR HEMOGLOBIN 23.1 pg (27.0-33.0); MEAN CORPUSCULAR HGB CONC 27.7 g/dl (32.0-36.5); MEAN CORPUSCULAR VOLUME 83.4 fl (80.0-96.0); PLATELET COUNT, AUTOMATED 285 10^3/uL (150-450); RED BLOOD COUNT 5.71 10^6/uL (4.30-6.10); WHITE BLOOD COUNT 10.6 10^3/uL (4.0-10.0)
[2020-10-11 07:19] LABS: BLOOD UREA NITROGEN 12 MG/DL (7-18); CARBON DIOXIDE LEVEL 35 MEQ/L (21-32); CHLORIDE LEVEL 99 MEQ/L (98-107); CREATININE FOR GFR 0.91 MG/DL (0.70-1.30); GLOMERULAR FILTRATION RATE > 60.0 (>60); GLUCOSE, FASTING 94 MG/DL (70-100); POTASSIUM SERUM 4.1 MEQ/L (3.5-5.1); SODIUM LEVEL 140 MEQ/L (136-145)
[2020-10-11 07:20] LABS: ALBUMIN 3.6 GM/DL (3.2-5.2); ALT/SGPT 30 U/L (12-78); BILIRUBIN,TOTAL 0.9 MG/DL (0.2-1.0); CALCIUM LEVEL 9.4 MG/DL (8.5-10.1); MAGNESIUM LEVEL 2.3 MG/DL (1.8-2.4); NT-PRO BNP 338 PG/ML (<125); TOTAL PROTEIN 7.2 GM/DL (6.4-8.2); TROPONIN I 0.11 NG/ML (< 0.10)
[2020-10-11] MEDS: ADVAIR HFA 115/21MCG INHALER INH SCH ×2 (07:20→19:54)
[2020-10-11] MEDS: OMEPRAZOLE 20 MG CAP PO SCH ×2 (08:50→20:49)
[2020-10-11] MEDS: DOCUSATE SODIUM 100MG CAPSULE PO SCH ×2 (08:50→20:48)
--- NOTE | 2020-10-11 14:18 | IPNPDOC ---
Subjective Date Seen The patient was seen on 10/11/20. Subjective Chief Complaint/HPI Patient says he feels better, his leg swelling has improved. Denies any SOb at rest or walking to bathroom . He reports that he feels sob when he has to walk long distances. No fever or chills, no cough. Objective Physical Examination General Exam: Positive: Alert, Cooperative, No Acute Distress Eye Exam: Positive: PERRLA, Conjunctiva & lids normal, EOMI; Negative: Sclera icteric ENT Exam: Positive: Atraumatic, Mucous membr. moist/pink, Pharynx Normal Neck Exam: Positive: Supple; Negative: JVD, thyromegaly Chest Exam: Positive: Normal air movement, Other (bilateral basal crackles) Heart Exam: Positive: Tachycardic, Regular Rhythm, Normal S1, Normal S2; Negative: Murmurs, Rubs Telemetry: Positive: No significant arrhythmia Abdomen Exam: Positive: Normal bowel sounds, Soft, Hepatospenomegaly; Negative: Tenderness Extremity Exam: Positive: Edema (1+), Normal pulses; Negative: Clubbing, Cyanosis Assessment /Plan Assessment This is a 25 year old male with Morbid obesity, SCOTT on CPAP, who presents to the ED with increasing sob, fatigue and new edema to his b/l LE developing over the past 2 to 3 weeks. CTA chest showed Upper normal mediastinal nodes which are increased since 06/25/2020. Minimal infiltrate in the anterior left upper lobe which is new and minimal infiltrates in the lower lobes and right middle lobe with some associated atelectasis consistent with pneumonia. Overall, there is slight increased since 06/25/2020 although some areas of previous infiltrate appear improved. Otherwise grossly negative CTA chest. No central pulmonary embolism is identified. Clinically he was found to be in CHF. CHF unknown type at present echo ordered continue lasix IV. Acute respiratory failure with hypoxia and hypercarbia likely due to CHF , SCOTT and may have obesity hypoventilation also. now improving. continue CPAP. Asthma continue advair, albuterol prn. Viral Pneumonia resp panel positive for human rhinovirus symptomatic treatment. Morbid obesity/ SCOTT CPAP inpatient. HTN continue lisinopril, amlodipine Depression sertraline, hydroxyzine GERD omeprazole Elevated troponin Flat curve. due to CHF. Plan/VTE VTE Prophylaxis Ordered?: Yes VS, I&O, 24H, Fishbone Vital Signs/I&O Vital Signs Date Time Temp Pulse Resp B/P (MAP) Pulse Ox O2 Delivery O2 Flow Rate FiO2 10/11/20 08:00 97.6 108 20 113/68 (83) 95 Room Air 10/11/20 06:15 50 10/11/20 04:25 3.0 I&O- Last 24 Hours up to 6 AM 10/11/20 07:00 Intake Total 0 ml Output Total 1300 ml Balance -1300 ml Laboratory Data 24H LABS Laboratory Tests 2 10/10/20 17:59: Prothrombin Time 12.9, Prothromb Time International Ratio 0.95 10/10/20 18:00: Immature Granulocyte % (Auto) 0.7, Neutrophils (%) (Auto) 75.4H, Lymphocytes (%) (Auto) 14.4L, Monocytes (%) (Auto) 7.5, Eosinophils (%) (Auto) 1.5, Basophils (%) (Auto) 0.5, Neutrophils # (Auto) 9.3H, Lymphocytes # (Auto) 1.8, Monocytes # (Auto) 0.9H, Eosinophils # (Auto) 0.2, Basophils # (Auto) 0.1, Nucleated Red Blood Cells % (auto) 0.0, Anion Gap 2L, Glomerular Filtration Rate > 60.0, Calcium Level 9.7, Total Bilirubin 0.5, Direct Bilirubin 0.1, Aspartate Amino Transf (AST/SGOT) 10, Alanine Aminotransferase (ALT/SGPT) 27, Alkaline Phosphatase 93, Total Creatine Kinase 82, Creatine Kinase MB 2.1, Creatine Kinase MB Relative Index 2.56, Troponin I 0.15H, PZ-Bbl-P-Type Natriuretic Peptide 597H, Total Protein 7.1, Albumin 3.5, Albumin/Globulin Ratio 1.0 10/10/20 22:36: Total Creatine Kinase 80, Creatine Kinase MB 1.5, Creatine Kinase MB Relative Index 1.88, Troponin I 0.14H 10/11/20 01:19: Blood Gas Bicarbonate Standard 29.7, Venous Blood pH 7.416, Venous Blood Partial Pressure CO2 50.1H, Venous Blood Partial Pressure O2 98.8H, Venous Blood Total Carbon Dioxide 33.0H, Venous Blood HCO3 31.5H, Venous Blood Oxygen Saturation 97.9H, Venous Blood Base Excess 5.8H 10/11/20 05:30: Bedside Glucose (Misc Panel) 107H 10/11/20 06:10: Nucleated Red Blood Cells % (auto) 0.0, Anion Gap 6L, Glomerular Filtration Rate > 60.0, Calcium Level 9.4, Magnesium Level 2.3, Total Bilirubin 0.9#, Aspartate Amino Transf (AST/SGOT) 15, Alanine Aminotransferase (ALT/SGPT) 30, Alkaline Phosphatase 94, Troponin I 0.11#H, WA-Sek-Y-Type Natriuretic Peptide 338H, Total Protein 7.2, Albumin 3.6, Albumin/Globulin Ratio 1.0 10/11/20 12:10: Troponin I 0.12H CBC/BMP Laboratory Tests 10/10/20 18:00 10/11/20 06:10 Microbiology Microbiology 10/11/20 Respiratory Virus Panel (PCR) ([facility]) - Final, Complete Human Rhinovirus/Enterovirus 10/10/20 Blood Culture, Received Pending AMARILYS SETHI MD Oct 11, 2020 14:18
[2020-10-11] MEDS: LISINOPRIL *2.5 MG* TAB PO SCH (20:48)
[2020-10-11] MEDS: SERTRALINE HCL 50 MG TAB PO SCH (20:48)
[2020-10-11] MEDS: amLODIPine 5 MG TAB PO SCH (20:49)
[2020-10-12] VITALS (16 sets, daily range): BP systolic 103–141; BP diastolic 51–74; O2SAT 85–95
[2020-10-12] MEDS: FUROSEMIDE 40MG/4ML VIAL (J1940) IV SCH ×4 (00:30→22:24)
[2020-10-12 06:30] LABS: HEMATOCRIT 49.3 % (42.0-52.0); HEMOGLOBIN 13.5 g/dl (13.5-17.5); MEAN CORPUSCULAR HEMOGLOBIN 23.3 pg (27.0-33.0); MEAN CORPUSCULAR HGB CONC 27.4 g/dl (32.0-36.5); MEAN CORPUSCULAR VOLUME 85.1 fl (80.0-96.0); PLATELET COUNT, AUTOMATED 318 10^3/uL (150-450); RED BLOOD COUNT 5.79 10^6/uL (4.30-6.10); WHITE BLOOD COUNT 13.2 10^3/uL (4.0-10.0)
[2020-10-12 06:56] LABS: BLOOD UREA NITROGEN 17 MG/DL (7-18); CALCIUM LEVEL 9.6 MG/DL (8.5-10.1); CARBON DIOXIDE LEVEL 38 MEQ/L (21-32); CHLORIDE LEVEL 96 MEQ/L (98-107); GLOMERULAR FILTRATION RATE > 60.0 (>60); GLUCOSE, FASTING 100 MG/DL (70-100); MAGNESIUM LEVEL 2.5 MG/DL (1.8-2.4); POTASSIUM SERUM 4.7 MEQ/L (3.5-5.1); SODIUM LEVEL 139 MEQ/L (136-145)
[2020-10-12] MEDS: ADVAIR HFA 115/21MCG INHALER INH SCH ×2 (07:42→18:33)
[2020-10-12] MEDS: OMEPRAZOLE 20 MG CAP PO SCH ×2 (08:25→20:33)
[2020-10-12] MEDS: DOCUSATE SODIUM 100MG CAPSULE PO SCH ×2 (08:25→20:32)
--- NOTE | 2020-10-12 11:56 | IPNPDOC ---
Subjective Date Seen The patient was seen on 10/12/20. Subjective Chief Complaint/HPI Feeling better. Leg swelling much less. No SOB when walking in the room. Advised to walk in the hallways so see if he gets SOB. Objective Physical Examination General Exam: Positive: Alert, Cooperative, No Acute Distress Eye Exam: Positive: PERRLA, Conjunctiva & lids normal, EOMI; Negative: Sclera icteric ENT Exam: Positive: Atraumatic, Mucous membr. moist/pink, Pharynx Normal Neck Exam: Positive: Supple; Negative: JVD, thyromegaly Chest Exam: Positive: Normal air movement, Other (bilateral basal crackles) Heart Exam: Positive: Tachycardic, Regular Rhythm, Normal S1, Normal S2; Negative: Murmurs, Rubs Telemetry: Positive: No significant arrhythmia Abdomen Exam: Positive: Normal bowel sounds, Soft, Hepatospenomegaly; Negative: Tenderness Extremity Exam: Positive: Edema (1+), Normal pulses; Negative: Clubbing, Cyanosis Assessment /Plan Assessment This is a 25 year old male with Morbid obesity, SCOTT on CPAP, who presents to the ED with increasing sob, fatigue and new edema to his b/l LE developing over the past 2 to 3 weeks. CTA chest showed Upper normal mediastinal nodes which are increased since 06/25/2020. Minimal infiltrate in the anterior left upper lobe which is new and minimal infiltrates in the lower lobes and right middle lobe with some associated atelectasis consistent with pneumonia. Overall, there is slight increased since 06/25/2020 although some areas of previous infiltrate appear improved. Otherwise grossly negative CTA chest. No central pulmonary embolism is identified. Clinically he was found to be in CHF. CHF unknown type at present echo ordered continue lasix IV. Acute on chronic respiratory failure with hypoxia and hypercarbia likely due to CHF , I think he has both SCOTT and obesity hypoventilation. continue CPAP. His machine is on varying mode from 4-20. I noted that mostly he is needing 16- 17 pressure support when he is sleeping. However he still desaturates with this pressure support and needed 6 to 10 liters bleed in at night. May have to go home with oxygen. Asthma continue advair, albuterol prn. Viral Pneumonia resp panel positive for human rhinovirus symptomatic treatment. Morbid obesity/ SCOTT diagnosed 1 year ago and since then on CPAP CPAP inpatient. HTN continue lisinopril, amlodipine Depression sertraline, hydroxyzine GERD omeprazole Elevated troponin Flat curve. due to CHF. Plan/VTE VTE Prophylaxis Ordered?: Yes VS, I&O, 24H, Fishbone Vital Signs/I&O Vital Signs Date Time Temp Pulse Resp B/P (MAP) Pulse Ox O2 Delivery O2 Flow Rate FiO2 10/12/20 08:00 97.4 107 18 103/51 (68) 94 NIPPV (BIPAP/CPAP) 10/12/20 04:00 6.0 10/11/20 06:15 50 I&O- Last 24 Hours up to 6 AM 10/12/20 06:00 Intake Total 2140 ml Output Total 5250 ml Balance -3110 ml Laboratory Data 24H LABS Laboratory Tests 2 10/11/20 12:10: Troponin I 0.12H 10/12/20 05:54: Nucleated Red Blood Cells % (auto) 0.0, Anion Gap 5L, Glomerular Filtration Rate > 60.0, Calcium Level 9.6, Magnesium Level 2.5H CBC/BMP Laboratory Tests 10/12/20 05:54 Microbiology Microbiology 10/11/20 Respiratory Virus Panel (PCR) ([facility]) - Final, Complete Human Rhinovirus/Enterovirus 10/10/20 Blood Culture - Preliminary, Resulted No growth after 24 hours . All specim... AMARILYS SETHI MD Oct 12, 2020 11:56
[2020-10-12 13:59] LABS: ABG BASE EXCESS 9.9 (-2.0-2.0); ABG O2 SATURATION 87.7 % (95.0-99.0); ABG PARTIAL PRESSURE CO2 54.1 mmHg (35.0-45.0); ABG PARTIAL PRESSURE O2 50.2 mmHg (75.0-100.0); ABG STANDARD HCO3 33.4 MEQ/L (22.0-26.0); ABG TOTAL CO2 37.7 MEQ/L (22.0-29.0); ABG pH (ARTERIAL) 7.441 UNITS (7.350-7.450)
[2020-10-12] MEDS: amLODIPine 5 MG TAB PO SCH (20:32)
[2020-10-12] MEDS: SERTRALINE HCL 50 MG TAB PO SCH (20:33)
[2020-10-12] MEDS: LISINOPRIL *2.5 MG* TAB PO SCH (20:33)
[2020-10-13] VITALS (12 sets, daily range): BP systolic 116–123; BP diastolic 53–73; O2SAT 86–98
[2020-10-13 05:55] LABS: HEMATOCRIT 46.3 % (42.0-52.0); HEMOGLOBIN 12.9 g/dl (13.5-17.5); MEAN CORPUSCULAR HEMOGLOBIN 23.2 pg (27.0-33.0); MEAN CORPUSCULAR HGB CONC 27.9 g/dl (32.0-36.5); MEAN CORPUSCULAR VOLUME 83.1 fl (80.0-96.0); PLATELET COUNT, AUTOMATED 324 10^3/uL (150-450); RED BLOOD COUNT 5.57 10^6/uL (4.30-6.10)
[2020-10-13] MEDS: FUROSEMIDE 40MG/4ML VIAL (J1940) IV SCH ×2 (05:57→13:45)
[2020-10-13 06:19] LABS: BLOOD UREA NITROGEN 20 MG/DL (7-18); CALCIUM LEVEL 9.4 MG/DL (8.5-10.1); CARBON DIOXIDE LEVEL 36 MEQ/L (21-32); CHLORIDE LEVEL 96 MEQ/L (98-107); GLOMERULAR FILTRATION RATE > 60.0 (>60); GLUCOSE, FASTING 91 MG/DL (70-100); MAGNESIUM LEVEL 2.4 MG/DL (1.8-2.4); POTASSIUM SERUM 4.1 MEQ/L (3.5-5.1); SODIUM LEVEL 136 MEQ/L (136-145)
[2020-10-13] MEDS ORDERED: TORS20TA2 PO (06:56)
[2020-10-13] MEDS: ADVAIR HFA 115/21MCG INHALER INH SCH (07:19)
[2020-10-13] MEDS: OMEPRAZOLE 20 MG CAP PO SCH (08:50)
[2020-10-13] MEDS: DOCUSATE SODIUM 100MG CAPSULE PO SCH (08:50)
--- NOTE | 2020-10-13 09:56 | IPNPDOC ---
Subjective Date Seen The patient was seen on 10/13/20. Subjective Chief Complaint/HPI Feeling better. still needing 6 litrs bleed in through the CPAP at night. Leg swelling almost resolved. Will need nocturnal pulse oximetry to qualify him for oxygen. unfortunately this cannot be done in the hospital since the computer systems went down its been not working. I will give him a script to get it done through [facility]. Only after the nocturnal oximetry is done will he qualify for oxygen if needed. Will be discharged home. Objective Physical Examination General Exam: Positive: Alert, Cooperative, No Acute Distress Eye Exam: Positive: PERRLA, Conjunctiva & lids normal, EOMI; Negative: Sclera icteric ENT Exam: Positive: Atraumatic, Mucous membr. moist/pink, Pharynx Normal Neck Exam: Positive: Supple; Negative: JVD, thyromegaly Chest Exam: Positive: Normal air movement, Other (bilateral basal crackles) Heart Exam: Positive: Tachycardic, Regular Rhythm, Normal S1, Normal S2; Negative: Murmurs, Rubs Telemetry: Positive: No significant arrhythmia Abdomen Exam: Positive: Normal bowel sounds, Soft, Hepatospenomegaly; Negative: Tenderness Extremity Exam: Positive: Edema (1+), Normal pulses; Negative: Clubbing, Cyanosis Assessment /Plan Assessment This is a 25 year old male with Morbid obesity, SCOTT on CPAP, who presents to the ED with increasing sob, fatigue and new edema to his b/l LE developing over the past 2 to 3 weeks. CTA chest showed Upper normal mediastinal nodes which are increased since 06/25/2020. Minimal infiltrate in the anterior left upper lobe which is new and minimal infiltrates in the lower lobes and right middle lobe with some associated atelectasis consistent with pneumonia. Overall, there is slight increased since 06/25/2020 although some areas of previous infiltrate appear improved. Otherwise grossly negative CTA chest. No central pulmonary embolism is identified. Clinically he was found to be in CHF. CHF unknown type at present echo shows grade 1 diastolic CHF, mild pulmonary hypertension, EF of 75%. continue torsemide at home fluid restriction 2L 2 gm sodium diet. Acute on chronic respiratory failure with hypoxia and hypercarbia likely due to CHF , I think he has both SCOTT and obesity hypoventilation. continue APAP. His machine is auto adjustable with pressure support ranging from 4-20. I noted that mostly he is needing 16- 17 pressure support when he is sleeping. However he still desaturates with this pressure support and needed 6 to 10 liters bleed in at night. will need a nocturnal pulse oximetry to qualify for oxygen at home Sinus tachycardia cause undermined yet. may need referral to Cardiology if persists. will defer to Cardiology. Asthma continue advair, albuterol prn. Viral Pneumonia resp panel positive for human rhinovirus symptomatic treatment. Morbid obesity/ SCOTT diagnosed 1 year ago and since then on APAP APAP inpatient. HTN continue lisinopril, amlodipine Depression sertraline, hydroxyzine GERD omeprazole Elevated troponin Flat curve. due to CHF. Disposition and discharge instructions. Home. 2 gm sodium diet with fluid restriction of 2 L. Script given for Nocturnal pulse oximetry through [facility]. Follow up with PMD in 1 week, Follow up pulmonary in 2 weeks. Plan/VTE VTE Prophylaxis Ordered?: Yes VS, I&O, 24H, Fishbone Vital Signs/I&O Vital Signs Date Time Temp Pulse Resp B/P (MAP) Pulse Ox O2 Delivery O2 Flow Rate FiO2 10/13/20 08:00 98.1 76 18 116/72 (87) 93 Room Air 10/13/20 04:00 6.0 10/11/20 06:15 50 I&O- Last 24 Hours up to 6 AM 10/13/20 06:00 Intake Total 1880 ml Output Total 2750 ml Balance -870 ml Laboratory Data 24H LABS Laboratory Tests 2 10/12/20 12:03: 10/12/20 13:45: Blood Gas Bicarbonate Standard 33.4H, Arterial Blood pH 7.441, Arterial Blood Partial Pressure CO2 54.1H, Arterial Blood Partial Pressure O2 50.2L, Arterial Blood Total CO2 37.7H, Arterial Blood HCO3 36.0H, Arterial Blood Base Excess 9.9H, Arterial Blood Oxygen Saturation 87.7L 10/13/20 05:25: Nucleated Red Blood Cells % (auto) 0.0, Anion Gap 4L, Glomerular Filtration Rate > 60.0, Calcium Level 9.4, Magnesium Level 2.4 CBC/BMP Laboratory Tests 10/13/20 05:25 Microbiology Microbiology 10/11/20 Respiratory Virus Panel (PCR) ([facility]) - Final, Complete Human Rhinovirus/Enterovirus 10/10/20 Blood Culture - Preliminary, Resulted No Growth after 48 hours. All Specime... RAY,AMARILYS MD Oct 13, 2020 09:56
--- NOTE | 2020-10-13 10:32 | ECHO ---
DATE OF PROCEDURE: 10/11/2020 Age: 25 Gender: Male Height: 75 inches Weight: 363 pounds Body surface area 2.83 meters squared. Inpatient PCU: Room 3228 REFERRING PHYSICIAN: OLYA Reynoso INDICATION: Edema. MEASUREMENTS: 2D measurements: RV 3.3 cm LV 4.8 cm Septum 1.1 cm Posterior wall 1.1 cm Aortic root 3.4 cm LA 3.8 cm LVEF 75% Doppler measurements: AV 1.33 m/s LVOT 1.17 m/s MV E 68, A 87, E/A ratio 0.8 Early mitral decelerations time 165 m/s E prime medial 8.7 A prime medial 12 E prime lateral 9.9 Average E/E prime ratio 7.2 PCWP 10.9 mmHg PV 1.1 m/s Pulmonary artery acceleration time 92 m/s PASP 40 mmHg IVC 1.8 cm COMMENTS: Sinus tachycardia without intraventricular conduction disturbance. Technically difficult study in light of the patient's body habitus, but diagnostic useful information was still obtained. M-mode and 2 dimensional echocardiography was performed with pulse, continuous wave, color flow and tissue Doppler studies. Normal left ventricular size, wall thickness and hypokinetic wall motion. Normal left atrial size, but Doppler evidence of grade 1 LV diastolic dysfunction with currently normal estimated mean left atrial pressure. Normal right heart chamber sizes and hypokinetic right ventricular free wall motion and single Doppler sign suggest at least mild pulmonary hypertension. Normal IVC size and collapse against an elevated central venous pressure. Normal aortic dimensions. Normal appearing and functioning aortic valve. Normal appearing and functioning mitral valve. Normal appearing and functioning tricuspid valve. No apparent intracardiac mass. Miniscule posterior pericardial effusion. MTDD
== END 2020-10-13 17:10 | disposition home or self-care (01) ==
LOC: M ED 14:44 → M ED INP 14:45 → ENRESERV 10-11 02:02 → M PCU 10-11 02:53 → INTOOBSV 10-13 09:54 → OBSVTOIN 10-13 09:54
PROVIDERS: ADMIT Internal Medicine; ATTEND Internal Medicine Nephrology
DX: I50.30 Unspecified diastolic (congestive) heart failure (principal); I27.20 Pulmonary hypertension, unspecified; J96.21 Acute and chronic respiratory failure with hypoxia; J96.22 Acute and chronic respiratory failure with hypercapnia; R00.0 Tachycardia, unspecified; J45.909 Unspecified asthma, uncomplicated; J12.89 Other viral pneumonia; B97.89 Other viral agents as the cause of diseases classified elsewhere; R60.0 Localized edema; M79.604 Pain in right leg; M79.605 Pain in left leg; E66.01 Morbid (severe) obesity due to excess calories; Z68.41 Body mass index [BMI] 40.0-44.9, adult; G47.33 Obstructive sleep apnea (adult) (pediatric); I11.0 Hypertensive heart disease with heart failure; F32.9 Major depressive disorder, single episode, unspecified; K21.9 Gastro-esophageal reflux disease without esophagitis; R74.8 Abnormal levels of other serum enzymes; Z79.899 Other long term (current) drug therapy
CPT/HCPCS: 36415; 36600; 71045; 71275; 80048; 80053; 80076; 82550; 82553; 82803; 83735; 83880; 84484; 85025; 85027; 85610; 87040; 87798; 93005; 93041; 93306; 93970; 94660; 94760; 96374; 96376; 99285; J1940; Q9967

== ENCOUNTER → 2020-10-19 | Outpatient (CLI) | payer BC, OTHER ==
[~2020-10-19] MED LIST changes: +ADVA115A INH; +LISI2.5T2 PO; +OMEP-218 PO; +SERT50TA29 PO; +TORS20TA2 PO
--- NOTE | 2020-10-21 16:10 | SLEEPCENT ---
DATE: 10/19/2020 ORDERED BY: Kristi Curry Nocturnal polysomnography was performed for the titration of pressure therapy in this patient with obstructive sleep apnea syndrome, not achieving symptom palliation with an autotitratable device. For testing, A [employer] Simplus full-face mask of medium size was used. There was 6 cm of water pressure initially applied to the circuit, and the lights were extinguished. There was 8 hours and 49 minutes of data reviewed. There was 462 minutes of sleep identified. Sleep latency was prolonged at 46 minutes. REM latency was normal at 68 minutes. Sleep architecture improved with optimal pressure therapy, and there were four REM cycles noted. Overall sleep efficiency was 88.2%. The electrocardiogram showed a sinus rhythm with one episode of supraventricular tachycardia (SVT) noted. Average heart rate was 90 beats per minute. EEG showed fairly normal waveforms for wake and sleep. There were no focal events identified. Persistence of respiratory events prompted increases in CPAP from 6 to 17 late in the study. Despite optimal mask fit and minimal air leak, the patient required a change to a bilevel device. Central apneas prompted the addition of a backup rate. Best sleep was seen on a bilevel device. Inspiratory rate 22 over expiratory of 17 with a backup rate of 8. Of note, throughout the test the patient had 150 apneas, of which 116 were mixed or central. There was some limb activity noted in the EMG leads; however, limb movement arousals were few at 1.8. 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 Apnea-hypopnea index 19.5 (116 of 150 events mixed or central). RECOMMENDATION: Nightly use of bilevel pressure therapy, inspiratory pressure 22 over expiratory pressure 17 with a backup rate of 8 applied to the device. Close clinical followup will be necessary given the complexity and severity of the patient's disease.
== END ==
LOC: M SLEEP 20:00
PROVIDERS: ATTEND Nurse Practitioner Family
DX: G47.33 Obstructive sleep apnea (adult) (pediatric) (principal)

== ENCOUNTER → 2020-10-20 | Outpatient (REF) | payer BC ==
[2020-10-20 17:42] LABS: BASO # 0.1 10^3/uL (0.0-0.2); BASO % 0.7 % (0.0-1.0); EOS # 0.1 10^3/uL (0.0-0.5); EOS % 1.3 % (0.0-3.0); HEMATOCRIT 48.9 % (42.0-52.0); HEMOGLOBIN 13.8 g/dl (13.5-17.5); LYMPH # 1.9 10^3/uL (1.5-5.0); LYMPH % 18.5 % (24.0-44.0); MEAN CORPUSCULAR HGB CONC 28.2 g/dl (32.0-36.5); MEAN CORPUSCULAR VOLUME 81.5 fl (80.0-96.0); MONO # 0.8 10^3/uL (0.0-0.8); MONO % 7.7 % (2.0-8.0); NEUTROPHILS # 7.2 10^3/uL (1.5-8.5); NEUTROPHILS % 71.5 % (36.0-66.0); PLATELET COUNT, AUTOMATED 359 10^3/uL (150-450)
[2020-10-20 18:16] LABS: ALT/SGPT 50 U/L (12-78); BILIRUBIN,TOTAL 0.2 MG/DL (0.2-1.0); BLOOD UREA NITROGEN 18 MG/DL (7-18); CALCIUM LEVEL 9.3 MG/DL (8.5-10.1); CARBON DIOXIDE LEVEL 31 MEQ/L (21-32); CHLORIDE LEVEL 101 MEQ/L (98-107); CREATININE FOR GFR 0.85 MG/DL (0.70-1.30); GLOMERULAR FILTRATION RATE > 60.0 (>60); GLUCOSE, FASTING 92 MG/DL (70-100); NT-PRO BNP 22 PG/ML (<125); POTASSIUM SERUM 3.8 MEQ/L (3.5-5.1); SODIUM LEVEL 139 MEQ/L (136-145); TOTAL PROTEIN 7.7 GM/DL (6.4-8.2)
== END ==
LOC: M SFHCPLAZ 15:27
PROVIDERS: ATTEND Physician Assistant Medical
DX: I50.31 Acute diastolic (congestive) heart failure (principal); R91.8 Other nonspecific abnormal finding of lung field

== ENCOUNTER → 2020-11-11 | Outpatient (REF) | payer BC ==
[2020-11-11 11:34] LABS: ALBUMIN 3.9 GM/DL (3.2-5.2); ALT/SGPT 42 U/L (12-78); BILIRUBIN,TOTAL 0.6 MG/DL (0.2-1.0); BLOOD UREA NITROGEN 15 MG/DL (7-18); CALCIUM LEVEL 9.5 MG/DL (8.5-10.1); CARBON DIOXIDE LEVEL 29 MEQ/L (21-32); CHLORIDE LEVEL 101 MEQ/L (98-107); CREATININE FOR GFR 0.76 MG/DL (0.70-1.30); GLOMERULAR FILTRATION RATE > 60.0 (>60); GLUCOSE, FASTING 99 MG/DL (70-100); SODIUM LEVEL 139 MEQ/L (136-145); TOTAL PROTEIN 7.7 GM/DL (6.4-8.2)
== END ==
LOC: M SFHCPLAZ 09:09
PROVIDERS: ATTEND Physician Assistant Medical
DX: I50.31 Acute diastolic (congestive) heart failure (principal)

== ENCOUNTER → 2020-11-17 | Outpatient (CLI) | payer BC ==
--- NOTE | 2020-11-17 10:24 | REPPI ---
INDICATION: G47.33 OBSTRUCTIVE SLEEP APNEA COMPARISON: 10/10/2020 TECHNIQUE: PA and lateral. FINDINGS: The mediastinum and cardiac silhouette are normal. The lung moser are clear and without acute consolidation, effusion, or pneumothorax. The skeletal structures are intact and normal. IMPRESSION: No acute cardiopulmonary process. <Electronically signed by Kirk Blackmon > 11/17/20 1021
== END ==
LOC: M PLAIMG 09:33 → M PLALAB 09:33
PROVIDERS: ATTEND Nurse Practitioner Family
DX: G47.33 Obstructive sleep apnea (adult) (pediatric) (principal)

== ENCOUNTER → 2020-11-27 | Outpatient (CLI) | payer BC ==
[2020-11-27 09:55] LABS: BLOOD UREA NITROGEN 14 MG/DL (7-18); CALCIUM LEVEL 9.4 MG/DL (8.5-10.1); CARBON DIOXIDE LEVEL 26 MEQ/L (21-32); CHLORIDE LEVEL 104 MEQ/L (98-107); GLOMERULAR FILTRATION RATE > 60.0 (>60); GLUCOSE, FASTING 95 MG/DL (70-100); NT-PRO BNP 6 PG/ML (<125); POTASSIUM SERUM 3.9 MEQ/L (3.5-5.1); SODIUM LEVEL 137 MEQ/L (136-145)
[2020-11-28 07:24] LABS: CREATININE, URINE 78.3 MG/DL; MALB URINE SIEMENS < 5.0 MG/L; MAU/CREAT RATIO 6.3 MCG/MG (0.0-30.0)
== END ==
LOC: M LAB 08:43
PROVIDERS: ATTEND Internal Medicine Cardiovascular Disease
DX: I11.0 Hypertensive heart disease with heart failure (principal); I50.32 Chronic diastolic (congestive) heart failure

== ENCOUNTER → 2020-12-09 | Outpatient (CLI) | payer BC | LOC: M LAB 09:17 | PROVIDERS: ATTEND Internal Medicine Cardiovascular Disease | DX: E24.9 Cushing's syndrome, unspecified (principal); I10 Essential (primary) hypertension ==

== ENCOUNTER → 2020-12-18 | Outpatient (CLI) | payer BC ==
[2020-12-18 10:44] LABS: BLOOD UREA NITROGEN 24 MG/DL (7-18); CALCIUM LEVEL 9.2 MG/DL (8.5-10.1); CARBON DIOXIDE LEVEL 27 MEQ/L (21-32); CHLORIDE LEVEL 104 MEQ/L (98-107); CREATININE FOR GFR 0.89 MG/DL (0.70-1.30); GLOMERULAR FILTRATION RATE > 60.0 (>60); GLUCOSE, FASTING 97 MG/DL (70-100); POTASSIUM SERUM 3.9 MEQ/L (3.5-5.1); SODIUM LEVEL 139 MEQ/L (136-145)
== END ==
LOC: M LAB 08:15
PROVIDERS: ATTEND Internal Medicine Cardiovascular Disease
DX: I10 Essential (primary) hypertension (principal)

== ENCOUNTER → 2021-01-23 | Outpatient (CLI) | payer BC ==
[2021-01-23 08:49] LABS: BLOOD UREA NITROGEN 13 MG/DL (7-18); CALCIUM LEVEL 9.1 MG/DL (8.5-10.1); CARBON DIOXIDE LEVEL 30 MEQ/L (21-32); CHLORIDE LEVEL 106 MEQ/L (98-107); CREATININE FOR GFR 0.81 MG/DL (0.70-1.30); GLOMERULAR FILTRATION RATE > 60.0 (>60); GLUCOSE, FASTING 92 MG/DL (70-100); POTASSIUM SERUM 4.4 MEQ/L (3.5-5.1); SODIUM LEVEL 141 MEQ/L (136-145)
== END ==
LOC: M LAB 07:47
PROVIDERS: ATTEND Internal Medicine Cardiovascular Disease
DX: I10 Essential (primary) hypertension (principal)

== ENCOUNTER → 2021-04-16 | Outpatient (CLI) | payer BC, OTHER, SELFPAY ==
[~2021-04-16] MED LIST changes: -LISI2.5T2; -LISI2.5T2 PO; +LISI2.5T9; +LISI2.5T9 PO
--- NOTE | 2021-04-20 20:10 | SLEEPCENT ---
DATE: 04/16/2021 CPAP RE-TITRATION ORDERED BY: SUZIE Kingston Nocturnal polysomnography was performed for re-titration of pressure therapy in this patient with obstructive sleep apnea syndrome. For testing a [employer] AirFit F20 full face mask of large size was used. An initial bilevel pressure of 20 inspiratory over 16 expiratory was applied to the circuit as ordered, and the lights were extinguished. Seven hours of data were reviewed. There were 326 minutes of sleep identified. Sleep latency was mildly prolonged at 36 minutes, REM latency likewise at 108 minutes. Sleep architecture improved with optimal pressure therapy. There were three REM cycles noted. Overall sleep efficiency was 78.4%. The electrocardiogram showed a sinus rhythm with an average heart rate of 68 beats per minute. EEG showed normal waveforms for wake and sleep. Respiratory events were best palliated with an inspiratory pressure of 22 over expiratory pressure of 18. There was some minor limb activity noted. Limb movement arousal index during this study was 5. IMPRESSION: Obstructive sleep apnea syndrome (G47.33). RECOMMENDATION: Nightly use of bilevel pressure inspiratory 22 over expiratory of 18. cc: ADAMA ACEVEDO, PA
== END ==
LOC: M SLEEP 20:11
PROVIDERS: ATTEND Nurse Practitioner Family
DX: G47.33 Obstructive sleep apnea (adult) (pediatric) (principal)

== ENCOUNTER → 2021-07-22 | Outpatient (CLI) | payer OTHER ==
[~2021-07-22] MED LIST changes: -MONT10TA10; +MONT10TA97; +OMEP-173 PO; -OMEP-218 PO
[2021-07-22 10:23] LABS: ALBUMIN 3.8 GM/DL (3.2-5.2); ALT/SGPT 49 U/L (12-78); BILIRUBIN,TOTAL 0.5 MG/DL (0.2-1.0); BLOOD UREA NITROGEN 16 MG/DL (7-18); CALCIUM LEVEL 8.9 MG/DL (8.5-10.1); CARBON DIOXIDE LEVEL 28 MEQ/L (21-32); CHLORIDE LEVEL 108 MEQ/L (98-107); CREATININE FOR GFR 0.88 MG/DL (0.70-1.30); GLOMERULAR FILTRATION RATE > 60.0 (>60); GLUCOSE, FASTING 95 MG/DL (70-100); MAGNESIUM LEVEL 2.4 MG/DL (1.8-2.4); POTASSIUM SERUM 4.3 MEQ/L (3.5-5.1); SODIUM LEVEL 141 MEQ/L (136-145); TOTAL PROTEIN 7.4 GM/DL (6.4-8.2)
[2021-07-22 10:24] LABS: NT-PRO BNP 9 PG/ML (<125)
== END ==
LOC: M LAB 09:12
PROVIDERS: ATTEND Physician Assistant
DX: I50.32 Chronic diastolic (congestive) heart failure (principal); I11.0 Hypertensive heart disease with heart failure

== ENCOUNTER 2021-10-06 07:29 | Emergency (ER) | payer OTHER ==
[~2021-10-06] VITALS: Ht 190.5 cm; Wt 160.8 kg
[2021-10-06] MEDS ORDERED: FAMO40TA3 (07:35)
[2021-10-06] MEDS ORDERED: TOPI25TA10 (07:35)
[2021-10-06] MEDS ORDERED: METO1TAB33 (07:35)
[2021-10-06] MEDS ORDERED: VALS1TAB68 (07:35)
[2021-10-06] MEDS ORDERED: METH-1164 PO (12:05)
[2021-10-06] MEDS ORDERED: KETO10TAB PO (12:05)
[2021-10-06 12:22] VITALS: BP 158/69
== END 2021-10-06 12:26 | disposition home or self-care (01) ==
LOC: M ED 07:29
DX: S39.012A Strain of muscle, fascia and tendon of lower back, initial encounter (principal); X58.XXXA Exposure to other specified factors, initial encounter; Y92.89 Other specified places as the place of occurrence of the external cause; Y99.0 Civilian activity done for income or pay; I10 Essential (primary) hypertension; G47.33 Obstructive sleep apnea (adult) (pediatric); K21.9 Gastro-esophageal reflux disease without esophagitis; Z79.899 Other long term (current) drug therapy

== ENCOUNTER → 2021-10-12 | Outpatient (CLI) | payer OTHER ==
[~2021-10-12] MED LIST changes: +FAMO40TA3; +KETO10TAB PO; +METH-1164 PO; +METO1TAB33; +TOPI25TA10; +VALS1TAB68
== END ==
LOC: M RAD 14:46
PROVIDERS: ATTEND Internal Medicine Pulmonary Disease
DX: R91.8 Other nonspecific abnormal finding of lung field (principal)

== ENCOUNTER → 2021-12-29 | Outpatient (CLI) | payer OTHER ==
[~2021-12-29] MED LIST changes: +ALBU2.5V10 NEB; -ALBU83IN NEB
== END ==
LOC: M RAD 12:49
PROVIDERS: ATTEND Nurse Practitioner Family
DX: R91.8 Other nonspecific abnormal finding of lung field (principal)

== ENCOUNTER → 2022-10-19 | Outpatient (CLI) | payer OTHER ==
[~2022-10-19] MED LIST changes: -DOXY-350 PO; +DOXY-444 PO; +METHACHOLINE KIT INH ONE
== END ==
LOC: M CARPUL 09-16 07:59
PROVIDERS: ATTEND Nurse Practitioner Family
DX: R06.00 Dyspnea, unspecified (principal)
CPT/HCPCS: 94070; J7674

== ENCOUNTER 2022-12-24 06:40 | Emergency (ER) | payer OTHER ==
[~2022-12-24] VITALS: Ht 188 cm; Wt 143.6 kg
[~2022-12-24 06:40] MED LIST changes: -METHACHOLINE KIT INH ONE
[2022-12-24] MEDS ORDERED: PHEN30CA21 (06:53)
[2022-12-24 09:19] VITALS: BP 124/84; TEMP 97; O2SAT 99
== END 2022-12-24 09:40 | disposition home or self-care (01) ==
LOC: M ED 06:40
DX: I83.812 Varicose veins of left lower extremity with pain (principal); I11.9 Hypertensive heart disease without heart failure; I50.20 Unspecified systolic (congestive) heart failure; G47.33 Obstructive sleep apnea (adult) (pediatric); K21.9 Gastro-esophageal reflux disease without esophagitis; Z79.899 Other long term (current) drug therapy

== ENCOUNTER → 2023-03-07 | Outpatient (CLI) | payer OTHER ==
[~2023-03-07] MED LIST changes: +PHEN30CA21
== END ==
LOC: M RAD 07:09
PROVIDERS: ATTEND Surgery Vascular Surgery
DX: I83.812 Varicose veins of left lower extremity with pain (principal); I87.2 Venous insufficiency (chronic) (peripheral)

== ENCOUNTER → 2023-05-24 | Outpatient (CLI) | payer OTHER ==
[~2023-05-24] MED LIST changes: +LIDOCAINE 1% MDV 20ML VIAL As Ordered ONE; +LIDOCAINE W/EPINEPHRINE 1% 20ML VIAL As Ordered ONE; +MIDAZOLAM INJ 2MG/2ML VIAL As Ordered ONE; +SODIUM BICARBONATE 8.4% INJ 50MEQ 50ML VIAL As Ordered ONE; +fentaNYL 100 MCG/2 ML INJECTION As Ordered ONE
[2023-05-24 11:29] VITALS: TEMP 96.8
[2023-05-24 11:50] LABS: HEMATOCRIT 46.8 % (42.0-52.0); MEAN CORPUSCULAR HEMOGLOBIN 30.5 pg (27.0-33.0); MEAN CORPUSCULAR HGB CONC 34.2 g/dl (32.0-36.5); MEAN CORPUSCULAR VOLUME 89.3 fl (80.0-96.0); PLATELET COUNT, AUTOMATED 269 10^3/uL (150-450); RED BLOOD COUNT 5.24 10^6/uL (4.30-6.10); WHITE BLOOD COUNT 9.2 10^3/uL (4.0-10.0)
[2023-05-24 12:18] LABS: BLOOD UREA NITROGEN 16 MG/DL (9-23); CALCIUM LEVEL 9.3 MG/DL (8.5-10.1); CARBON DIOXIDE LEVEL 25 MMOL/L (20-31); CHLORIDE LEVEL 104 MMOL/L (98-107); CREATININE FOR GFR 0.77 MG/DL (0.70-1.30); GLOMERULAR FILTRATION RATE > 60.0 (>60); GLUCOSE, FASTING 91 MG/DL (60-100); POTASSIUM SERUM 3.9 MMOL/L (3.5-5.1); SODIUM LEVEL 137 MMOL/L (136-145)
[2023-05-24 15:10] VITALS: BP 164/77; O2SAT 98
== END ==
LOC: M IRPRO 11:13
PROVIDERS: ATTEND Surgery Vascular Surgery
DX: I83.892 Varicose veins of left lower extremity with other complications (principal)
CPT/HCPCS: 36475; 80048; 85027; 99152; 99153; J2250; J3010

== ENCOUNTER → 2025-06-22 | Outpatient (CLI) | payer OTHER ==
[~2025-06-22] MED LIST changes: +DOXY-440 PO; -DOXY-444 PO; -LIDOCAINE 1% MDV 20ML VIAL As Ordered ONE; -LIDOCAINE W/EPINEPHRINE 1% 20ML VIAL As Ordered ONE; -MIDAZOLAM INJ 2MG/2ML VIAL As Ordered ONE; -SODIUM BICARBONATE 8.4% INJ 50MEQ 50ML VIAL As Ordered ONE; +TOPI-256; -TOPI25TA10; -fentaNYL 100 MCG/2 ML INJECTION As Ordered ONE
== END ==
LOC: M SLEEP 20:00
PROVIDERS: ATTEND Physician Assistant
DX: G47.33 Obstructive sleep apnea (adult) (pediatric) (principal)